=== PATIENT | female | born 1945 | race Hispanic/Latino ===

== ENCOUNTER 2023-02-20 21:27 | Inpatient (IN) | payer MEDICARE ==
[2023-02-20 22:44] LABS: #Basophils 0.1 10x3/uL (0.0-0.2); #Eosinphils 0.1 10x3/uL (0.0-0.5); #Monocytes 1.1 10x3/uL (0.0-1.1); #Neutrophils 9.8 10x3/uL (1.5-8.4); %Basophils 0.5 % (0.0-2.0); %Lymphocytes 13.3 % (18.0-47.0); %Monocytes 8.7 % (0.0-10.0); %Neutrophils 76.1 % (40.0-75.0); Hemoglobin 13.2 g/dL (12.0-15.5); Mean Corpuscular HGB CONC 35.2 g/dL (32.0-36.0); Mean Corpuscular Hemoglobin 31.7 pg (27.0-33.0); Mean Corpuscular Volume 89.9 fl (81.6-98.3); Mean Platelet Volume 9.3 fl (7.4-10.4); Platelet Count 204 10x3/uL (150-450); RBC Distribution Width 18.1 % (11.5-14.5); Red Blood Cell (RBC) Count 4.17 10x6/uL (3.90-5.03); White Blood Cell (WBC) Count 12.9 10x3/uL (3.5-10.5)
[2023-02-20 22:52] LABS: ALT (SGPT) 16 U/L (8-55); AST (SGOT) 57 U/L (5-34); Albumin 2.5 g/dL (3.4-4.8); Alkaline Phosphatase 222 U/L (40-110); Anion Gap 13 mmol/L (10-20); BUN (Urea Nitrogen) 17 mg/dL (9.8-20.1); Bilirubin, Total 3.6 mg/dL (0.2-1.2); Calc. Creatinine Clearance 0 mL/min (70-130); Calcium 8.2 mg/dL (7.8-10.44); Carbon Dioxide 24 mmol/L (23-31); Chloride 96 mmol/L (98-107); Estimated GFR 67; Globulin 4.6 g/dL (2.4-3.5); Glucose 106 mg/dL (83-110); Potassium 3.7 mmol/L (3.5-5.1); Protein, Total 7.1 g/dL (5.8-8.1); Sodium 129 mmol/L (136-145)
[2023-02-20 23:39] LABS: INR-International Normal Ratio 1.6; Prothrombin Time 17.2 sec (9.5-12.1)
[2023-02-21] MEDS ORDERED: Ondansetron PF 4 MG/2 ML Vial IVP PRN (00:28)
[2023-02-21] MEDS ORDERED: Calcium Carbonate 500 MG ChewTAB PO PRN (00:28)
[2023-02-21] MEDS ORDERED: Senokot S 8.6-50 MG TAB PO PRN (00:28)
[2023-02-21] MEDS ORDERED: Acetaminophen 325 MG TAB PO PRN (00:28)
[2023-02-21] MEDS ORDERED: Guaifenesin DM 100-10/5 ML UDCUP PO PRN (00:28)
[2023-02-21] MEDS ORDERED: ALPRAZolam 0.5 MG TAB PO PRN (00:35)
[2023-02-21] MEDS ORDERED: Furosemide 40 MG/4 ML VIAL ONE (00:52)
[2023-02-21] MEDS: Furosemide 40 MG/4 ML VIAL SLOW IVP SCH (01:15)
[2023-02-21 02:18] LABS: Lactic Acid 2.7 mmol/L (0.5-2.2)
[2023-02-21 04:42] LABS: #Eosinphils 0.1 10x3/uL (0.0-0.5); #Monocytes 1.2 10x3/uL (0.0-1.1); #Neutrophils 9.8 10x3/uL (1.5-8.4); %Basophils 0.2 % (0.0-2.0); %Eosinophils 0.6 % (0.0-6.0); %Lymphocytes 10.7 % (18.0-47.0); %Monocytes 9.6 % (0.0-10.0); %Neutrophils 78.6 % (40.0-75.0); Mean Corpuscular HGB CONC 34.6 g/dL (32.0-36.0); Mean Corpuscular Hemoglobin 31.4 pg (27.0-33.0); Mean Corpuscular Volume 90.8 fl (81.6-98.3); Mean Platelet Volume 9.6 fl (7.4-10.4); Platelet Count 220 10x3/uL (150-450); Red Blood Cell (RBC) Count 3.82 10x6/uL (3.90-5.03); White Blood Cell (WBC) Count 12.5 10x3/uL (3.5-10.5)
[2023-02-21 04:44] LABS: MONO NEGATIVE CONTROL ZONE White (Negative) (White); MONO POSITIVE CONTROL Pink Line (Positive) (PINK/RED); Mononucleosis NEGATIVE (NEGATIVE)
[2023-02-21 04:53] LABS: INR-International Normal Ratio 1.7; PTT 35.3 sec (22.0-33.0); Prothrombin Time 17.6 sec (9.5-12.1)
[2023-02-21 04:56] LABS: Lactic Acid 2.4 mmol/L (0.5-2.2)
[2023-02-21 05:00] LABS: ALT (SGPT) 15 U/L (8-55); AST (SGOT) 42 U/L (5-34); Acetaminophen Less than 10.0 mcg/mL (10.0-30.0); Albumin 2.2 g/dL (3.4-4.8); Alkaline Phosphatase 195 U/L (40-110); Anion Gap 15 mmol/L (10-20); BUN (Urea Nitrogen) 17 mg/dL (9.8-20.1); Bilirubin, Total 3.7 mg/dL (0.2-1.2); Calc. Creatinine Clearance 83 mL/min (70-130); Carbon Dioxide 23 mmol/L (23-31); Cardiac Risk 11.7 (Less than 4.5); Chloride 97 mmol/L (98-107); Cholesterol 82 mg/dl (< 200 Desired); Estimated GFR 69; Globulin 3.8 g/dL (2.4-3.5); Glucose 98 mg/dL (83-110); HDL Cholesterol 7 mg/dL (>60 Neg Risk); LDL Cholesterol, Calculated 56 mg/dL; Potassium 3.9 mmol/L (3.5-5.1); Sodium 131 mmol/L (136-145); Triglycerides 97 mg/dL (Less than 150)
[2023-02-21 05:01] LABS: Bilirubin, Direct 2.4 mg/dL (0.1-0.3)
[2023-02-21 05:14] LABS: Bilirubin Neg (Negative); Blood, Urine Negative (Negative); Clarity Clear (Clear); Glucose, Urine (Dipstick) Normal (Negative); Ketone, Urine Negative (Negative); Leukocyte Negative (Negative); Nitrite Negative (Negative); Protein, Urine (Dipstick) Negative (Neg-Trace); Urobilinogen Normal mg/dL (Less than 2)
[2023-02-21 05:14] LABS: Ferritin 616.07 ng/mL (10-291); Thyroid Stimulating Hormone 9.7285 uIU/mL (0.35-4.94)
[2023-02-21 05:34] LABS: Bacteria/HPF None Seen HPF (None Seen); RBC/HPF None Seen HPF (0-3); Squamous Epithelial 0-3 HPF (0-3); WBC/HPF 0-3 HPF (0-3)
[2023-02-21 05:43] LABS: Microalbumin Urine Less than 1.0 mg/dL (0.5-50.0)
[2023-02-21] MEDS ORDERED: Spironolactone 25 MG TAB PO SCH (08:00)
[2023-02-21] MEDS: Escitalopram Oxalate 20 mg Tablet PO SCH (08:34)
[2023-02-21] MEDS ORDERED: Iopamidol 300 61% 100 ML VIAL FS ONE (11:20)
[2023-02-21 13:50] LABS: HBCM Index 0.08 S/CO (0-0.79); Hep A IgM AB Non-Reactive S/CO (NonReactive); Hep A IgM S/CO 0.21 S/CO (0-0.79); Hep C IgG Ab Non-Reactive S/CO (NonReactive); Hep C Index 0.24 S/CO (0-0.79); Hepatitis B Core IgM Abs Non-Reactive S/CO (NonReactive)
[2023-02-21 15:07] LABS: ANA Symphony (Qualitative) Equivocal: See Note (Negative); ANA Symphony (Quantitative) 0.9 Ratio (< 0.7 Negative); dsDNA IgG Antibody 3.3 IU/mL (<10 Negative)
[2023-02-21 19:59] LABS: Legionella Urinary Ag Negative (Negative); Strep pneumo Urine Ag NEGATIVE (NEGATIVE)
[2023-02-22] MEDS: Furosemide 40 MG/4 ML VIAL SLOW IVP SCH (00:17)
[2023-02-22 05:48] LABS: ALT (SGPT) 13 U/L (8-55); AST (SGOT) 45 U/L (5-34); Albumin 2.1 g/dL (3.4-4.8); Alkaline Phosphatase 163 U/L (40-110); Anion Gap 13 mmol/L (10-20); BUN (Urea Nitrogen) 19 mg/dL (9.8-20.1); Bilirubin, Total 3.2 mg/dL (0.2-1.2); Calc. Creatinine Clearance 75 mL/min (70-130); Calcium 7.7 mg/dL (7.8-10.44); Carbon Dioxide 23 mmol/L (23-31); Chloride 98 mmol/L (98-107); Estimated GFR 61; Globulin 3.7 g/dL (2.4-3.5); Glucose 83 mg/dL (83-110); Potassium 3.8 mmol/L (3.5-5.1); Protein, Total 5.8 g/dL (5.8-8.1); Sodium 130 mmol/L (136-145)
[2023-02-22 05:49] LABS: HBSAg Index 0.26 S/CO (0-0.99); Hep B Surf Ag Non-Reactive S/CO (NonReactive)
[2023-02-22] MEDS: Escitalopram Oxalate 20 mg Tablet PO SCH (09:51)
[2023-02-22] MEDS: Spironolactone 25 MG TAB PO SCH (09:51)
[2023-02-22] MEDS ORDERED: Sodium Bicarbonate 2.5 MEQ/5 ML VIAL ONE (13:18)
[2023-02-22] MEDS ORDERED: Lidocaine 1% PF 5 ML VIAL ONE (13:18)
[2023-02-22 15:48] LABS: BF Color Yellow; Body Fluid Source Peritoneal Fluid; Clarity Clear (Clear); Tube # EDTA
[2023-02-22 16:14] LABS: BF Segmented Neutrophils 56 %; Cell Count Non Hematic 20 %; Lymphocytes 24 %
[2023-02-23 04:25] LABS: Hemoglobin 11.3 g/dL (12.0-15.5); Mean Corpuscular HGB CONC 34.1 g/dL (32.0-36.0); Mean Corpuscular Hemoglobin 31.4 pg (27.0-33.0); Mean Corpuscular Volume 91.9 fl (81.6-98.3); Mean Platelet Volume 9.5 fl (7.4-10.4); Platelet Count 206 10x3/uL (150-450); RBC Distribution Width 18.8 % (11.5-14.5); White Blood Cell (WBC) Count 11.8 10x3/uL (3.5-10.5)
[2023-02-23 04:30] LABS: Lactic Acid 1.5 mmol/L (0.5-2.2)
[2023-02-23 04:33] LABS: ALT (SGPT) 13 U/L (8-55); AST (SGOT) 53 U/L (5-34); Albumin 1.9 g/dL (3.4-4.8); Alkaline Phosphatase 161 U/L (40-110); Anion Gap 11 mmol/L (10-20); BUN (Urea Nitrogen) 20 mg/dL (9.8-20.1); Bilirubin, Total 2.5 mg/dL (0.2-1.2); Calc. Creatinine Clearance 72 mL/min (70-130); Calcium 7.6 mg/dL (7.8-10.44); Carbon Dioxide 23 mmol/L (23-31); Chloride 99 mmol/L (98-107); Estimated GFR 61; Globulin 3.7 g/dL (2.4-3.5); Glucose 91 mg/dL (83-110); Potassium 4.2 mmol/L (3.5-5.1); Protein, Total 5.6 g/dL (5.8-8.1); Sodium 129 mmol/L (136-145)
[2023-02-23] MEDS: Furosemide 40 MG/4 ML VIAL SLOW IVP SCH (05:02)
[2023-02-23] MEDS: Escitalopram Oxalate 20 mg Tablet PO SCH (09:41)
[2023-02-23] MEDS: Spironolactone 25 MG TAB PO SCH (09:41)
[2023-02-23 09:44] VITALS: BMI 38.2
[2023-02-23] MEDS ORDERED: Magnevist 469MG/ML 20 ML VIAL ONE (10:02)
[2023-02-23] MEDS ORDERED: Phytonadione 10 MG/ML AMP PO SCH (19:00)
[2023-02-24 04:20] LABS: #Eosinphils 0.2 10x3/uL (0.0-0.5); #Monocytes 1.1 10x3/uL (0.0-1.1); #Neutrophils 9.5 10x3/uL (1.5-8.4); %Basophils 0.3 % (0.0-2.0); %Eosinophils 1.6 % (0.0-6.0); %Lymphocytes 13.7 % (18.0-47.0); %Monocytes 8.9 % (0.0-10.0); Hemoglobin 11.3 g/dL (12.0-15.5); Mean Corpuscular HGB CONC 34.5 g/dL (32.0-36.0); Mean Corpuscular Hemoglobin 31.7 pg (27.0-33.0); Mean Corpuscular Volume 91.9 fl (81.6-98.3); Mean Platelet Volume 9.5 fl (7.4-10.4); Platelet Count 190 10x3/uL (150-450); RBC Distribution Width 19.2 % (11.5-14.5); Red Blood Cell (RBC) Count 3.57 10x6/uL (3.90-5.03); White Blood Cell (WBC) Count 12.7 10x3/uL (3.5-10.5)
[2023-02-24 04:29] LABS: ALT (SGPT) 14 U/L (8-55); AST (SGOT) 53 U/L (5-34); Albumin 1.8 g/dL (3.4-4.8); Alkaline Phosphatase 171 U/L (40-110); Anion Gap 13 mmol/L (10-20); BUN (Urea Nitrogen) 21 mg/dL (9.8-20.1); Bilirubin, Total 2.6 mg/dL (0.2-1.2); Calc. Creatinine Clearance 68 mL/min (70-130); Calcium 7.8 mg/dL (7.8-10.44); Carbon Dioxide 21 mmol/L (23-31); Chloride 99 mmol/L (98-107); Estimated GFR 57; Globulin 3.7 g/dL (2.4-3.5); Glucose 80 mg/dL (83-110); Potassium 4.1 mmol/L (3.5-5.1); Protein, Total 5.5 g/dL (5.8-8.1); Sodium 129 mmol/L (136-145)
[2023-02-24 04:34] LABS: INR-International Normal Ratio 1.6; Prothrombin Time 16.6 sec (9.5-12.1)
[2023-02-24] MEDS: Furosemide 40 MG/4 ML VIAL SLOW IVP SCH (05:42)
[2023-02-24] MEDS: Escitalopram Oxalate 20 mg Tablet PO SCH (08:38)
[2023-02-24] MEDS: Spironolactone 25 MG TAB PO SCH (08:38)
[2023-02-24] MEDS ORDERED: GoLYTELY 4,000 ml Bottle PO SCH (15:00)
[2023-02-24] MEDS ORDERED: ALPRAZolam 0.5 MG TAB PO SCH (18:30)
[2023-02-25 04:24] LABS: #Basophils 0.1 10x3/uL (0.0-0.2); #Eosinphils 0.2 10x3/uL (0.0-0.5); #Monocytes 1.3 10x3/uL (0.0-1.1); #Neutrophils 12.4 10x3/uL (1.5-8.4); %Basophils 0.3 % (0.0-2.0); %Lymphocytes 9.9 % (18.0-47.0); %Monocytes 8.3 % (0.0-10.0); %Neutrophils 79.8 % (40.0-75.0); Hemoglobin 11.7 g/dL (12.0-15.5); Mean Corpuscular HGB CONC 35.6 g/dL (32.0-36.0); Mean Corpuscular Hemoglobin 32.2 pg (27.0-33.0); Mean Corpuscular Volume 90.6 fl (81.6-98.3); Mean Platelet Volume 9.4 fl (7.4-10.4); Platelet Count 198 10x3/uL (150-450); RBC Distribution Width 19.2 % (11.5-14.5); Red Blood Cell (RBC) Count 3.63 10x6/uL (3.90-5.03); White Blood Cell (WBC) Count 15.6 10x3/uL (3.5-10.5)
[2023-02-25 04:43] LABS: ALT (SGPT) 14 U/L (8-55); AST (SGOT) 46 U/L (5-34); Alkaline Phosphatase 168 U/L (40-110); Anion Gap 14 mmol/L (10-20); BUN (Urea Nitrogen) 20 mg/dL (9.8-20.1); Bilirubin, Total 2.9 mg/dL (0.2-1.2); Calc. Creatinine Clearance 67 mL/min (70-130); Calcium 7.8 mg/dL (7.8-10.44); Carbon Dioxide 22 mmol/L (23-31); Chloride 97 mmol/L (98-107); Estimated GFR 56; Globulin 3.7 g/dL (2.4-3.5); Glucose 83 mg/dL (83-110); Potassium 4.2 mmol/L (3.5-5.1); Protein, Total 5.7 g/dL (5.8-8.1); Sodium 129 mmol/L (136-145)
[2023-02-25] MEDS: Levothyroxine Sodium 75 MCG TAB PO SCH (07:15)
[2023-02-25] MEDS: Furosemide 40 MG/4 ML VIAL SLOW IVP SCH (07:15)
[2023-02-25] MEDS ORDERED: PROPOFOL 40 ML ONE (09:45)
[2023-02-25] MEDS ORDERED: Lidocaine 1% PF 5 ML VIAL ONE (09:49)
[2023-02-25] MEDS ORDERED: PHENYLEPHRINE-NS 100 MCG/ML 10 ML SYRINGE ONE (09:50)
[2023-02-25] MEDS: Spironolactone 25 MG TAB PO SCH (11:10)
[2023-02-25] MEDS: Escitalopram Oxalate 20 mg Tablet PO SCH (11:11)
[2023-02-25] MEDS: ALPRAZolam 0.5 MG TAB PO SCH (11:11)
[2023-02-26 04:52] LABS: #Eosinphils 0.1 10x3/uL (0.0-0.5); #Monocytes 1.3 10x3/uL (0.0-1.1); #Neutrophils 11.2 10x3/uL (1.5-8.4); %Basophils 0.2 % (0.0-2.0); %Lymphocytes 10.3 % (18.0-47.0); %Monocytes 9.3 % (0.0-10.0); %Neutrophils 78.5 % (40.0-75.0); Hemoglobin 11.5 g/dL (12.0-15.5); Mean Corpuscular HGB CONC 34.8 g/dL (32.0-36.0); Mean Corpuscular Hemoglobin 31.6 pg (27.0-33.0); Mean Corpuscular Volume 90.7 fl (81.6-98.3); Mean Platelet Volume 9.4 fl (7.4-10.4); Platelet Count 212 10x3/uL (150-450); RBC Distribution Width 18.9 % (11.5-14.5); Red Blood Cell (RBC) Count 3.64 10x6/uL (3.90-5.03); White Blood Cell (WBC) Count 14.3 10x3/uL (3.5-10.5)
[2023-02-26 05:10] LABS: ALT (SGPT) 15 U/L (8-55); AST (SGOT) 57 U/L (5-34); Albumin 1.9 g/dL (3.4-4.8); Alkaline Phosphatase 162 U/L (40-110); Anion Gap 13 mmol/L (10-20); BUN (Urea Nitrogen) 24 mg/dL (9.8-20.1); Bilirubin, Direct 1.8 mg/dL (0.1-0.3); Bilirubin, Total 2.6 mg/dL (0.2-1.2); Calc. Creatinine Clearance 53 mL/min (70-130); Calcium 7.6 mg/dL (7.8-10.44); Carbon Dioxide 24 mmol/L (23-31); Chloride 96 mmol/L (98-107); Estimated GFR 43; Glucose 90 mg/dL (83-110); Potassium 4.2 mmol/L (3.5-5.1); Protein, Total 5.4 g/dL (5.8-8.1); Sodium 129 mmol/L (136-145)
[2023-02-26] MEDS: Levothyroxine Sodium 75 MCG TAB PO SCH (05:16)
[2023-02-26] MEDS: Furosemide 40 MG/4 ML VIAL SLOW IVP SCH (05:16)
[2023-02-26 10:18] LABS: INR-International Normal Ratio 1.5; PTT 35.9 sec (22.0-33.0); Prothrombin Time 16.1 sec (9.5-12.1)
[2023-02-26] MEDS: Escitalopram Oxalate 20 mg Tablet PO SCH (11:15)
[2023-02-26] MEDS: Albumin 25% 25 GM/100 ML BOT IVPB SCH ×3 (11:16→22:32)
[2023-02-26] MEDS: Spironolactone 25 MG TAB PO SCH (11:17)
[2023-02-26 13:41] LABS: EliA Vaculitis New Method **** NEW METHOD ****; Mitochondrial Ab 1.5 U/mL (<4 Negative)
[2023-02-26] MEDS: ALPRAZolam 0.5 MG TAB PO SCH (14:24)
[2023-02-26 16:44] LABS: SARS-CoV-2 NAA Rapid Test Not Detected (NotDetected)
[2023-02-27] MEDS: Albumin 25% 25 GM/100 ML BOT IVPB SCH (04:08)
[2023-02-27] MEDS: Levothyroxine Sodium 75 MCG TAB PO SCH (05:36)
[2023-02-27] MEDS: Spironolactone 25 MG TAB PO SCH (08:02)
[2023-02-27] MEDS: Escitalopram Oxalate 20 mg Tablet PO SCH (08:02)
[2023-02-27] MEDS: ALPRAZolam 0.5 MG TAB PO SCH (08:02)
[2023-02-27 08:42] LABS: #Eosinphils 0.2 10x3/uL (0.0-0.5); #Monocytes 0.9 10x3/uL (0.0-1.1); #Neutrophils 9.1 10x3/uL (1.5-8.4); %Basophils 0.3 % (0.0-2.0); %Eosinophils 1.4 % (0.0-6.0); %Lymphocytes 11.6 % (18.0-47.0); %Monocytes 7.3 % (0.0-10.0); %Neutrophils 78.7 % (40.0-75.0); Hemoglobin 10.8 g/dL (12.0-15.5); Mean Corpuscular HGB CONC 35.3 g/dL (32.0-36.0); Mean Corpuscular Hemoglobin 32.1 pg (27.0-33.0); Mean Corpuscular Volume 91.1 fl (81.6-98.3); Mean Platelet Volume 9.1 fl (7.4-10.4); Platelet Count 130 10x3/uL (150-450); Red Blood Cell (RBC) Count 3.36 10x6/uL (3.90-5.03); White Blood Cell (WBC) Count 11.6 10x3/uL (3.5-10.5)
[2023-02-27 08:51] LABS: ALT (SGPT) 12 U/L (8-55); AST (SGOT) 51 U/L (5-34); Albumin 2.8 g/dL (3.4-4.8); Alkaline Phosphatase 121 U/L (40-110); Anion Gap 16 mmol/L (10-20); BUN (Urea Nitrogen) 30 mg/dL (9.8-20.1); Calc. Creatinine Clearance 42 mL/min (70-130); Carbon Dioxide 23 mmol/L (23-31); Chloride 95 mmol/L (98-107); Estimated GFR 32; Glucose 88 mg/dL (83-110); Potassium 4.3 mmol/L (3.5-5.1); Protein, Total 5.8 g/dL (5.8-8.1); Sodium 130 mmol/L (136-145)
[2023-02-27 21:59] VITALS: BP 111/51; TEMP 99
== END 2023-02-27 22:50 | disposition short-term general hospital (02) | DRG 436 ==
LOC: CSHERS 21:27 → CSHERHOLD 02-21 00:26 → CSHTELE 02-21 16:44
PROVIDERS: ADMIT Student in an Organized Health Care Education/Training Program; ATTEND Emergency Medicine
PROC: 0W9G3ZX Drainage of Peritoneal Cavity, Percutaneous Approach, Diagnostic (ICD-10-PCS; principal; 2023-02-22)
PROC: 0W9G3ZZ Drainage of Peritoneal Cavity, Percutaneous Approach (ICD-10-PCS; 2023-02-22)
PROC: 0DJ08ZZ Inspection of Upper Intestinal Tract, Via Natural or Artificial Opening Endoscopic (ICD-10-PCS; 2023-02-25)
PROC: 0DJD8ZZ Inspection of Lower Intestinal Tract, Via Natural or Artificial Opening Endoscopic (ICD-10-PCS; 2023-02-25)
PROC: 30233J1 Transfusion of Nonautologous Serum Albumin into Peripheral Vein, Percutaneous Approach (ICD-10-PCS; 2023-02-26)
DX: C22.0 Liver cell carcinoma (principal); E87.1 Hypo-osmolality and hyponatremia; E87.20 Acidosis, unspecified; N17.9 Acute kidney failure, unspecified; K74.60 Unspecified cirrhosis of liver; C22.1 Intrahepatic bile duct carcinoma; E80.6 Other disorders of bilirubin metabolism; F41.9 Anxiety disorder, unspecified; F32.A Depression, unspecified; I10 Essential (primary) hypertension; D72.829 Elevated white blood cell count, unspecified; K76.0 Fatty (change of) liver, not elsewhere classified; K44.9 Diaphragmatic hernia without obstruction or gangrene; K57.30 Diverticulosis of large intestine without perforation or abscess without bleeding; K22.2 Esophageal obstruction; E88.09 Other disorders of plasma-protein metabolism, not elsewhere classified; Z20.822 Contact with and (suspected) exposure to COVID-19; Z80.3 Family history of malignant neoplasm of breast; Z88.8 Allergy status to other drugs, medicaments and biological substances; Z88.0 Allergy status to penicillin; Z98.890 Other specified postprocedural states; Z79.899 Other long term (current) drug therapy
CPT/HCPCS: 36415; 49083; 71045; 74177; 74183; 76705; 80048; 80053; 80061; 80074; 80076; 80143; 81001; 82042; 82043; 82105; 82248; 82390; 82728; 83516; 83540; 83550; 83605; 83880; 84157; 84439; 84443; 84484; 85025; 85027; 85610; 85730; 86015; 86038; 86225; 86308; 87040; 87449; 87899; 88112; 88305; 88341; 88342; 89051; 93005; 93306; 93970; 80307; A9579; C1729; J1650; J1940; J1956; J2405; J2704; J3430; P9047; Q9967; U0002